=== PATIENT | male | born 1990 | race Caucasian/White ===

== ENCOUNTER 2018-03-15 16:06 | Emergency (ER) | payer MEDICAID | END 2018-03-15 18:59 | disposition home or self-care (01) | LOC: FTE 16:06 | DX: R06.02 Shortness of breath (principal); R04.0 Epistaxis; M54.5 Low back pain; R40.2412 Glasgow coma scale score 13-15, at arrival to emergency department | CPT/HCPCS: 71046; 99283-25 ==

== ENCOUNTER 2018-03-16 23:21 | Emergency (ER) | payer MEDICAID ==
[2018-03-17] MEDS: ONDANSETRON 4 MG INJ IV (02:59)
[2018-03-17] MEDS: SOD CHLORIDE 0.9% 1,000 ML IV (02:59)
[2018-03-17 03:04] LABS: ADD MAN DIFF? NO
[2018-03-17 03:06] LABS: WHITE BLOOD COUNT 8.6 10^3/ul (4.8-10.8)
[2018-03-17 03:06] LABS: ABNORMAL IP MESSAGE 1; BASOPHILS % 0.2 % (0.0-2.0); EOSINOPHILS % 0.1 % (0.0-7.0); HEMATOCRIT 49.2 % (42.0-52.0); HEMOGLOBIN 17.1 g/dl (14.0-18.0); LYMPHOCYTES # 0.3 10^3/ul (0.8-2.9); MEAN CORPUSCULAR HEMOGLOBIN 30.6 pg (29.0-33.0); MEAN CORPUSCULAR HGB CONC 34.8 g/dl (32.0-37.0); MEAN PLATELET VOLUME 10.5 fl (7.4-10.4); MONOCYTE # 0.3 10^3/ul (0.3-0.9); NEUTROPHILS % 93.3 % (39.0-77.0); PLATELET COUNT 152 10^3/UL (140-415); POSITIVE DIFF @See below; RED BLOOD COUNT 5.59 10^6/ul (4.70-6.10); RED CELL DISTRIBUTION WIDTH 11.8 % (11.5-14.5)
[2018-03-17 03:13] LABS: ADD UMIC YES; UR ASCORBIC ACID NEGATIVE (NEGATIVE); UR BILIRUBIN (Dip) NEGATIVE (NEGATIVE); UR BLOOD (Dip) NEGATIVE (NEGATIVE); UR CLARITY CLEAR (CLEAR); UR COLOR YELLOW (YELLOW); UR GLUCOSE (Dip) NEGATIVE (NEGATIVE); UR KETONES (Dip) TRACE mg/dL (NEGATIVE); UR LEUKOCYTE ESTERASE (Dip) NEGATIVE Leu/ul (NEGATIVE); UR NITRITE (Dip) NEGATIVE (NEGATIVE); UR RBC 5 /HPF (0-5); UR SPECIFIC GRAVITY (Dip) 1.029 (1.003-1.030); UR TOTAL PROTEIN (Dip) 1+ mg/dl (NEGATIVE); UR UROBILINOGEN (Dip) NEGATIVE (NEGATIVE); UR WBC 0 /HPF (0-5)
[2018-03-17 03:23] LABS: ALANINE AMINOTRANSFERASE 22 IU/L (13-69); ALBUMIN 4.3 g/dl (3.3-4.9); ALBUMIN/GLOBULIN RATIO 1.16; ALKALINE PHOSPHATASE 80 IU/L (42-121); ANION GAP 10 (5-13); ASPARTATE AMINO TRANSFERASE 31 IU/L (15-46); BILIRUBIN,INDIRECT 0.9 mg/dl (0-1.1); BILIRUBIN,TOTAL 0.9 mg/dl (0.2-1.3); BLOOD UREA NITROGEN 22 mg/dl (7-20); CALCIUM 9.4 mg/dl (8.4-10.2); CARBON DIOXIDE 28 mmol/L (21-31); CHLORIDE 103 mmol/L (97-110); CREATININE 0.82 mg/dl (0.61-1.24); Estimated GFR > 60 mL/min (>60); GLUCOSE 162 mg/dl (70-220); POTASSIUM 4.1 mmol/L (3.5-5.1); SODIUM 141 mmol/L (135-144)
== END 2018-03-17 05:02 | disposition home or self-care (01) ==
LOC: FTE 23:21
DX: R10.9 Unspecified abdominal pain (principal); R11.2 Nausea with vomiting, unspecified
CPT/HCPCS: 36415; 74176; 80053; 81001; 83690; 85025; 96374; 99285-25

== ENCOUNTER 2018-03-17 14:09 | Emergency (ER) | payer MEDICAID ==
[2018-03-17] MEDS ORDERED: PIPER-TAZO 3.375 GM IV (PMX) 100 ML (16:02)
[2018-03-17] MEDS ORDERED: ONDANSETRON 4 MG INJ (16:02)
[2018-03-17] MEDS: ONDANSETRON 4 MG INJ IV (16:04)
[2018-03-17] MEDS: SOD CHLORIDE 0.9% 1,000 ML IV (16:05)
[2018-03-17] MEDS: PIPER-TAZO 3.375 GM IV (PMX) 100 ML IVPB (16:05)
[2018-03-17 16:11] LABS: ADD MAN DIFF? NO
[2018-03-17 16:14] LABS: URINE BLOOD (Dip) POC Trace-intact (NEGATIVE); URINE GLUCOSE (Dip) POC Negative (NEGATIVE); URINE KETONES (Dip) POC Trace (NEGATIVE); URINE LEUKOCYTE EST (Dip) POC Negative (NEGATIVE); URINE NITRITE (Dip) POC Negative (NEGATIVE); URINE TOTAL PROTEIN POC 1+ (NEGATIVE)
[2018-03-17 16:15] LABS: WHITE BLOOD COUNT 6.4 10^3/ul (4.8-10.8)
[2018-03-17 16:15] LABS: BASOPHILS % 0.3 % (0.0-2.0); EOSINOPHILS % 0.3 % (0.0-7.0); HEMATOCRIT 49.1 % (42.0-52.0); HEMOGLOBIN 16.8 g/dl (14.0-18.0); LYMPHOCYTES # 0.7 10^3/ul (0.8-2.9); MEAN CORPUSCULAR HEMOGLOBIN 30.4 pg (29.0-33.0); MEAN CORPUSCULAR HGB CONC 34.2 g/dl (32.0-37.0); MEAN CORPUSCULAR VOLUME 88.9 fl (82.0-101.0); MEAN PLATELET VOLUME 10.6 fl (7.4-10.4); MONOCYTE # 0.4 10^3/ul (0.3-0.9); MONOCYTES % 5.8 % (0.0-11.0); NEUTROPHIL # 5.3 10^3/ul (1.6-7.5); NEUTROPHILS % 82.3 % (39.0-77.0); PLATELET COUNT 154 10^3/UL (140-415); RED BLOOD COUNT 5.52 10^6/ul (4.70-6.10)
[2018-03-17 16:35] LABS: ANION GAP 11 (5-13); BLOOD UREA NITROGEN 21 mg/dl (7-20); CALCIUM 9.4 mg/dl (8.4-10.2); CARBON DIOXIDE 29 mmol/L (21-31); CHLORIDE 101 mmol/L (97-110); CREATININE 0.89 mg/dl (0.61-1.24); Estimated GFR > 60 mL/min (>60); GLUCOSE 95 mg/dl (70-220); POTASSIUM 3.6 mmol/L (3.5-5.1); SODIUM 141 mmol/L (135-144)
[2018-03-17 16:47] LABS: LIPASE 60 U/L (23-300)
== END 2018-03-17 17:35 | disposition home or self-care (01) ==
LOC: FTE 14:09
DX: A09 Infectious gastroenteritis and colitis, unspecified (principal)
CPT/HCPCS: 36415; 80048; 81003; 83690; 85025; 96361; 96365; 96375; 99284-25

== ENCOUNTER 2018-04-10 10:19 | Emergency (ER) | payer MEDICAID ==
[2018-04-10] MEDS: LIDOCAINE/MYLANTA 40 ML BTL PO (12:22)
== END 2018-04-10 12:49 | disposition home or self-care (01) ==
LOC: FTE 10:19
DX: R12 Heartburn (principal)
CPT/HCPCS: 99282; Z7502

== ENCOUNTER 2018-10-25 09:29 | Emergency (ER) | payer OTHER, MEDICAID ==
[2018-10-25] MEDS: IBUPROFEN 600 MG TAB PO (10:18)
== END 2018-10-25 10:25 | disposition home or self-care (01) ==
LOC: FTE 10:25
DX: B02.9 Zoster without complications (principal)
CPT/HCPCS: 99283; Z7502

== ENCOUNTER 2018-11-04 13:06 | Emergency (ER) | payer MEDICAID, OTHER | END 2018-11-04 13:15 | disposition home or self-care (01) | LOC: E/R 13:06 | DX: B02.9 Zoster without complications (principal) | CPT/HCPCS: 99282; Z7502 ==